=== PATIENT | female | born 1965 | race Caucasian/White ===

== ENCOUNTER 2019-02-11 13:55 | Emergency (ER) | payer MEDICAID ==
[~2019-02-11] VITALS: Ht 154.9 cm; Wt 95.5 kg
[2019-02-11 14:29] VITALS: BP 145/117
== END 2019-02-11 15:42 | disposition home or self-care (01) ==
LOC: ER 13:56
DX: M65.222 Calcific tendinitis, left upper arm (principal)
CPT/HCPCS: 73060; 99283